=== PATIENT | female | born 1940 | race Caucasian/White ===

== ENCOUNTER 2016-05-08 10:07 | Inpatient (IN) ==
[2016-05-08] MEDS ORDERED: Albuterol 2.5 MG/3 ML NEBULIZER IH ONE (10:32)
[2016-05-08] MEDS ORDERED: CeFAZolin Pre 2,000 MG/100 ML 2,000 MG/100 ML BAG IVPB ONE (10:32)
[2016-05-08] MEDS ORDERED: Lidocaine 1% 20 ML MDV ID ONE (10:34)
[2016-05-08] MEDS ORDERED: Ringers Solution, Lactated 1,000 ML IVC SCH (10:45)
--- NOTE | 2016-05-08 10:56 | Anesthesia Evaluation PreOp ---
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 (spinal stenosis, spondylosis, multiple back issues) Other Medical History: Other (Rheumatoid arthritis) Anesthesia History: Past Anesthesia (hysterectomy, iliofem endarterectomy and l external iliac stent, tubal, R to L fem bypass with grafting, revision fem-fem graft), Problems (hypotension (likely from blood loss due to surgery)) Alcohol Use: none Drug use: none Medications and Allergies Albuterol Sulfate [Proair HFA] 0 puff IH Q4HR 02/14/15 [History] Aspirin 81 mg PO DAILY 02/14/15 [History] Budesonide/Formoterol 160/4.5 [Symbicort] 2 puff IH BIDR 02/14/15 [History] Clopidogrel [Plavix] 75 mg PO DAILY 02/14/15 [History] Polyethylene Glycol 3350 [MiraLAX] 17 gm PO DAILY 10 Days 02/14/15 [Rx] Roflumilast [Daliresp] 500 mcg PO 02/14/15 [History] Tiotropium [Spiriva] 18 mcg IH 0700 02/14/15 [History] Calcium Carbonate/Vitamin D3 [Calcium 500 + Vit D Caplet] 1 each PO DAILY [History] Oxycodone HCl/Acetaminophen [Percocet 7.5-325 mg Tablet] 1 each PO PRN PRN 07/01 [History] Azithromycin [Azithromycin 6-Tab Pack] 250 mg PO DAILY #6 tab 02/07/16 [Rx] Denosumab [Prolia (For Outpatient Infusion)] 60 mg SQ 02/07/16 [History] GuaiFENesin ER [Mucinex] 1,200 mg PO BID #28 tbbp.12hr 02/07/16 [Rx] PredniSONE 40 mg PO DAILY #10 tablet 02/07/16 [Rx] Allergies fentanyl Allergy (Verified 08/01/15 13:06) Nausea Penicillins Allergy (Verified 02/14/15 11:53) Itching - Meds/Allergy Pre-op Review Medications Reviewed: Yes Allergies Reviewed: Yes Beta Blockers on Current Med List: No Anesthesia Results - Labs Laboratory Tests 05/01/16 05/01/16 05/01/16 12:21 12:21 12:21 WBC 11.3 H Hgb 13.0 Hct 38.7 Plt Count 388 PT 10.4 INR 1.0 APTT 28.9 Sodium 136 Potassium 4.4 Chloride 105 Carbon Dioxide 23 BUN 21 H Creatinine 0.85 Glucose 72 - Imaging EKG: report reviewed, image reviewed (SR, poss LAE, septal ME (indeterminante age)) Anesthesia Exam Last Vital Signs Temp 98.2 F 05/08/16 10:31 Pulse 84 05/08/16 10:31 Resp 18 05/08/16 10:48 BP 133/67 05/08/16 10:31 Pulse Ox 99 05/08/16 10:48 Weight: 38 kg NPO (# of Hours): >> 8 hrs - HEENT Pupil (Motor): Pupils equal, EOMI Mallampati: II Teeth: Edentulous Denture Type: Upper: Complete, Lower: Complete Oral Opening: Greater than 3 - TIE CARRIER LOC: Oriented - Cardiac Rhythm: Regular Murmur: None - Pulmonary Breath Sounds: bilateral Clear Respiratory Effort: Symmetrical Anesthesia Assess/Plan ASA Score: 3 Modified [place] Scale for Level of Consciousness: Cooperative, oriented, and tranquil Anesthetic Plan: General Monitoring Plan: Standard Monitors, A-Line Recovery Plan: PACU
[2016-05-08] MEDS ORDERED: Vancomycin 1,000 MG VIAL ONE (12:29)
[2016-05-08] MEDS ORDERED: Heparin 1,000 UNITS/500 mL NS 500 ML ONE ×2 (12:29→13:58)
--- NOTE | 2016-05-08 12:31 | History & Physical Report ---
Date of Encounter: 05/08/16 Time of Encounter: 12:20 24 Hour HP Update - Instructions Instructions: If the History and Physical is less than 30 days old and was completed prior to A.M. admission and or procedure and has NOT been updated on calendar day of procedure please complete this update prior to performing procedure. - Update Patient reports changes in Medical Condition: No Changes in assessment/condition: No Changes in Medication: No Preop tests/diagnostics Reviewed: Yes Surgery Remains Indicated: Yes Consent for Planned Operative Procedure(s) Verified: Yes - Pre-Operative Checklist Preoperative Checklist Indicated: Yes Prophylactic Antibiotic Ordered: Yes Home Medications Include Beta Isabelle: No Beta Isabelle Taken Today (Day of Surgery): No Beta Isabelle Taken Yesterday (Day Prior to Surgery): No Is VTE Prophylaxis Indicated?: Yes
[2016-05-08] MEDS ORDERED: Heparin 1,000 UNITS/500 mL NS 1,000 ML ONE (12:45)
[2016-05-08] MEDS ORDERED: *HR* Remifentanil 2 MG VIAL IVP ONE (13:05)
[2016-05-08] MEDS ORDERED: *HR* Labetalol 100 MG/20 ML MDV IVP PRN (13:34)
[2016-05-08] MEDS ORDERED: Ipratropium Neb 0.5 MG NEBULIZER IH PRN (13:34)
[2016-05-08] MEDS ORDERED: Ondansetron 4 MG/2 ML VIAL IVP PRN ×2 (13:34→17:43)
[2016-05-08] MEDS ORDERED: Albuterol 2.5 MG/3 ML NEBULIZER IH PRN ×2 (13:34→17:43)
[2016-05-08] MEDS ORDERED: Dexamethasone 4 MG/ML VIAL ONE ×2 (13:51→13:58)
[2016-05-08] MEDS ORDERED: Lidocaine -MPF 2% 2 ML VIAL ONE (13:58)
[2016-05-08] MEDS ORDERED: *HR* Succinylcholine 200 MG/10 ML VIAL IVP ONE (13:58)
[2016-05-08] MEDS ORDERED: Water for inj. (sterile) 10 ML IV ONE (13:58)
[2016-05-08] MEDS ORDERED: *HR* Midazolam HCl 2 MG/2 ML VIAL ONE (13:58)
[2016-05-08] MEDS ORDERED: *HR* Propofol 200 MG/20 ML VIAL IVP ONE (13:58)
[2016-05-08] MEDS ORDERED: Ondansetron 4 MG/2 ML VIAL ONE (13:58)
[2016-05-08] MEDS ORDERED: *HR* Phenylephrine 10 MG/ML VIAL ONE (13:58)
[2016-05-08] MEDS ORDERED: *HR* Heparin 5,000 UNIT/ML VIAL ONE (13:58)
[2016-05-08] MEDS ORDERED: *HR* HYDROmorphone 2 MG/ML SYRINGE ONE (15:16)
[2016-05-08] MEDS: *HR* HYDROmorphone (PF) 1 MG/ML SYRINGE IVP PRN ×3 (15:54→16:19)
--- NOTE | 2016-05-08 16:17 | Operative Note ---
Date of procedure: 05/08/16 Pre-op diagnosis: Peripheral vascular disease with disabling claudication Post-op diagnosis: same Procedure: 1. Right common iliac artery 6 x 37mm stent. 2. Revision of Femoral to femoral artery bypass with hemashield patch. 3. Right common and superficial femoral endarterectomy. Complications: None Anesthesia: JMA Surgeon: Artie Monet Estimated blood loss (cc): 100 Specimen: None Condition: stable Disposition: PACU Procedure in Detail: Indications: The patient is a 75 year old female with a history of peripheral vascular disease with disabling claudication. She previosuly underwent a right to left femoral to femoral artery bypass for a left iliac occlusion. She presented to clinic with complaints of bilateral lower extremity disabling claudication. She underwent a CT scan that revealed right common iliac artery high grade stenosis and a stenosis at the origin of her femoral to femoral artery bypass. Revascularization was recomended due to her symptoms. Procedure: The patient was identified in the preoperative area. The risks, benefits, and alternatives of the procedure were discussed. All questions were answered. The patient was taken to the operating room and placed in supine position on the operating room table. After the induction of general endotracheal anesthesia, he was cleaned and draped in normal sterile fashion. An oblique incision was made sharply through her previous right groin scar. Hemostasis was obtained with electrocautery. Through a process of blunt, sharp , and electrocautery dissection, the right femoral vessels and proximal bypass graft anastamosis were dissected circumferentially and surrounded with vessel loops. The patient received 5000 units of heparin intravenously. After waiting adequate time for the heparin to circulate, the right common femoral artery was cannulated with a large bore needle. A [employer] wire was advanced though the needle into the aorta under fluoroscopic view. The needle was exchanged for a 6 panamanian sheath and an omniflush catheter was advanced into the abodminal aorta. Due to the stenosis, a guiding catheter was required to direct the wire through the stenosis and into the aorta. The wire was removed and a retrograde aortoiliac angiogram was performed. This revelead an occluded left common and external iliac artery and a greater than 90% right common iliac artery stenosis. Additional angiography was performed to determine lesion size. A 6 x 37mm stent was advanced over the right wire and was positioned under fluoroscopic guidance. Angiography confirmed appropriate stent placement. The stent was deployed and a completion angiogram revealed resolution of the stenotic segment. The sheath was removed over the wire and the wire and sheath were removed. The puncture site was then repaired with a 6-0 Prolene. A graftotomy was then made longitudinally along the proximal anastamosis. The arteriotomy was extended into the superficial femoral artery. Dense intimal hyparplasia was noted to be obstructin the origin of the graft, the common femoral artery and the proximal superficial femoral artery. Using a dental freer, the intimal hyperplasia was excised. It was then noted that significant plaque was also occluding the common femoral and superficial femoral artery origins. The superficial femoral arteriotomy was exteded distally. Using a dental freer and endarterectomy was performed aalong the common and superficial femoral artery. The plaque was then removed. The lumen was irrigated. Endpoints were inspected and no elevated flaps were noted. The proximal anastamosis of the femoral to femoral bypass graft was revised with a hemashield patch. The patch was cut to fit the graft graft defect and allow for larger inflow. The patch was sutured in place with a running 6-0 Prolene. The corners of the bypass graft were secured in place with a 6-0 prolene and the patch was extended onto the superficial femoral artery defect. Prior to completing the patch, the vessels and graft were flushed through the patch and heparin was infused into the lumen. The patch was completed and flow was restored. Thrombin and gelfoam were used at the proximal anastamosis. Polyphasic signals were noted in the bypass graft and the deep and superficial femoral arteries. The wounds were irrigated with antibiotic-containing saline. Platelet rich and platelet poor plasma were infused into the wounds. Meticulous hemostasis was obtained throughout the wound with electrocautery. Wounds were reapproximated with layers of 2-0 and 3-0 Vicryl. Skin was reapproximated with 3-0 Monocryl. A sterile dressing was applied. The patient was extubated and taken to recovery room in stable condition.
--- NOTE | 2016-05-08 17:24 | Anesthesia Evaluation Post Op ---
Date of Encounter: 05/08/16 Time of Encounter: 17:23 - Vital Signs Vital Signs: Last Vital Signs Temp 97.4 F L 05/08/16 16:57 Pulse 67 05/08/16 17:11 Resp 14 05/08/16 17:11 BP 117/60 05/08/16 17:11 Pulse Ox 99 05/08/16 17:11 - Lungs Lungs: Clear Ascult./Percussion - Airway Airway: Non-obstructed - Cardiovascular Regular Rate - Mental Status Mental Status: Alert & Oriented, Answers Appropriately - Pain Pain Scale: 2 - Nausea Vomiting Nausea Vomiting: Not Present - Hydration Hydration: NPO - Discharge PostOp Status: Transfer Patient to floor
[2016-05-08] MEDS ORDERED: *HR* Promethazine 25 MG/ML VIAL IVP PRN (17:43)
[2016-05-08] MEDS ORDERED: *HR* Labetalol 20 MG/4 ML SYRINGE IVP PRN (17:43)
[2016-05-08] MEDS ORDERED: *HR* OxyCODONE/APAP 5/325 TABLET PO PRN (17:43)
[2016-05-08] MEDS ORDERED: Naloxone 0.4 MG/ML INJ IVP PRN (17:43)
[2016-05-08] MEDS: *HR* Metoprolol 5 MG/5 ML VIAL IVP SCH (18:12)
[2016-05-08] MEDS: Budesonide/Formoterol 160/4.5 MDI IH SCH (20:07)
[2016-05-08] MEDS: ceFAZolin 2,000 MG in D5% in Water 100 ML IVPB SCH (21:30)
[2016-05-09] MEDS: *HR* OxyCODONE/APAP 10/325 TABLET PO PRN ×2 (00:33→09:09)
[2016-05-09] MEDS: *HR* Metoprolol 5 MG/5 ML VIAL IVP SCH ×2 (00:33→04:53)
[2016-05-09] MEDS: ceFAZolin 2,000 MG in D5% in Water 100 ML IVPB SCH (04:54)
[2016-05-09 05:04] LABS: Basophils % 0.1 %; Eosinophils % 0.1 %; Hemoglobin 10.5 g/dL (11.5-15.4); Immature Granulocytes % 0.6 % (0-4); Lymphocytes # 1.9 K/mcL (0.6-4.6); Lymphocytes % 16.3 %; Mean Corpuscular HGB Conc 33.9 g/dL (31.6-35.5); Mean Corpuscular Hemoglobin 31.7 pg (28.0-33.3); Mean Corpuscular Volume 93.7 fL (83.0-100.0); Monocytes % 8.6 %; Neutrophils # 8.7 K/mcL (1.6-8.9); Platelet Count 300 K/mcL (140-400); Red Blood Count 3.31 M/mcL (3.82-4.97); Red Cell Distribution Width 13.4 % (11.5-14.5); Segmented Neutrophils % 74.3 %
[2016-05-09 05:20] LABS: BUN/Creatinine Ratio 19 (6-26); Blood Urea Nitrogen 13 mg/dL (7-20); Calcium 8.4 mg/dL (8.6-10.8); Carbon Dioxide 22 mEq/L (19-29); Chloride 107 mEq/L (98-109); Glucose 106 mg/dL (70-99); Osmolality,Calculated 283 (280-300); Potassium 4.3 mEq/L (3.5-4.5); Sodium 136 mEq/L (136-145); eGFR For African Americans > 60 (> 60); eGFR For Non-African Americans > 60 (> 60)
[2016-05-09] MEDS ORDERED: *HR* Heparin 5,000 UNIT/ML VIAL SQ SCH ×2 (06:00)
--- NOTE | 2016-05-09 07:58 | Discharge Summary ---
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 Her wound is healing and she has no hematoma. Her feet are warm and her pedal signals are present. She will be discharged today. (2) Tobacco abuse Priority: Secondary Status: Chronic Comments: She was counseled regarding smoking cessation. (3) Essential hypertension Priority: Secondary Status: Chronic Comments: She was counseled regarding atherosclerotic risk factor reduction. (4) COPD (chronic obstructive pulmonary disease) Priority: Secondary Status: Chronic Qualifiers: COPD type: emphysema Emphysema type: panlobular Qualified Code(s): J43.1 - Panlobular emphysema - Discharge Medications Home Medications: Albuterol Sulfate [Albuterol Inhaler] 2 puff IH Q4HR PRN 02/14/15 [History] Aspirin 81 mg PO DAILY 02/14/15 [History] Budesonide/Formoterol 160/4.5 [Symbicort] 2 puff IH BIDR 02/14/15 [History] Clopidogrel [Plavix] 75 mg PO DAILY 02/14/15 [History] Roflumilast [Daliresp] 500 mcg PO DAILY 02/14/15 [History] Calcium Carbonate/Vitamin D3 [Calcium 500 + Vit D Caplet] 1 each PO DAILY [History] Denosumab [Prolia (For Outpatient Infusion)] 60 mg SQ Q6M 02/07/16 [History] Albuterol Neb [Proventil Neb] 2.5 mg IH Q4HR PRN 05/08/16 [History] OxyCODONE/APAP 10/325 [Percocet 10/325 MG] 1 each PO Q6H PRN 05/08/16 [History] Oxygen 2 l NS HS 05/08/16 [History] Allergies/Adverse Reactions: Allergies Penicillins Allergy (Verified 05/08/16 11:22) Itching fentanyl Adverse Reaction (Verified 05/08/16 11:22) Nausea Date of admission: 05/08/16 17:36 Primary care physician: David Cardozo Procedure(s) Performed: Right iliac stent, revision of FEM FEM bypass, right femoral endarterectomy. Discharging clinician: Artie Monet Anticipated date of discharge: 05/09/16 - Patient Status Disposition: Home, Self-Care Condition: Good Functional capacity at discharge: independent ambulation Overall status at discharge: patient is back to baseline - Discharge Instructions Instructions: Peripheral Vascular Disorders (DC), Surgical Site Infections (GEN ) Follow Up With: David Cardozo MD [Primary Care Provider] - 05/20/16 4:00 pm Artie Monet MD [Partnered Physician] - 06/23/16 1:00 pm Additional Instructions: May remove bandage and shower 05/10/16. Wash wound gently and pat to dry. Apply dry gauze to right groin wound daily for 7 days. No tub baths or swimming until 05/27/16. Call [phone] with questions or concerns. - Diet and Activity Activity: increase activity as tolerated Diet: advance to your usual diet - Hospital Course Hospital course: Ms. Flores is a 75 year old female with multiple medical comorbidities who reported recurrent disabling claudication. She was found to have significant liac stenosis, femoral artery disease and stenosis of her bypass graft. She underwent revision of her FEM-FEM, a right iliac stent and a right femoral endarterectomy. She was discharged on postoperative day #1 in stable condition without complication. - Time Spent with Patient Total time spent providing and/or coordinating discharge services: Exam Vital Signs, Last 4 Hours Temp Pulse Resp BP Pulse Ox 05/09/16 07:00 73 05/09/16 04:44 98.4 F 59 16 106/60 96 General: Present: Conversant, No Apparent Distress HEENT: Present: Pupils equal Neck: Absent: Tracheal deviation Cardiac: Present: Reg Rate and Rhythm Lungs: Present: Normal Breath Sounds, No Wheeze, Rales, Rhonchi Neuro: Present: Alert and responsive, No focal deficits noted, Motor nerves grossly intact, Sensory nerves grossly intact Abdomen: Present: Soft, Non-tender Vascular: Present: Normal capillary refill, Surgical incisions (incision clean, dry and intact without erythema or drainage). Absent: Cyanosis, Edema Skin: Present: No rashes noted on visualized skin - VTE Documentation of Mechanical Device: Intermittent pneumatic compression device
[2016-05-09 08:13] VITALS: BP 112/55
[2016-05-09] MEDS ORDERED: Aspirin 81 MG TAB.CHEW PO SCH (09:00)
[2016-05-09] MEDS ORDERED: Cholecalciferol (D-3) 1,000 UNIT TABLET PO SCH (09:00)
[2016-05-09] MEDS ORDERED: (Roflumilast [Daliresp] 500 MCG) PO SCH (09:00)
[2016-05-09] MEDS: Budesonide/Formoterol 160/4.5 MDI IH SCH (10:55)
== END 2016-05-09 11:11 | disposition home or self-care (01) | DRG 254 ==
LOC: SAMDAY 10:07 → 2NNU 17:36
PROVIDERS: ADMIT Surgery; ATTEND Surgery

== ENCOUNTER 2018-06-24 06:13 | Inpatient (IN) ==
[2018-06-24] MEDS ORDERED: Vancomycin 500 MG in 0.9 % Sodium Chloride 250 ML IVPB ONE (07:18)
[2018-06-24] MEDS ORDERED: Albuterol 2.5 MG/3 ML NEBULIZER IH ONE (07:18)
[2018-06-24] MEDS ORDERED: CeFAZolin Syr 2,000MG/20 ML 2,000 MG/20 ML SYRINGE IVPB ONE (07:18)
[2018-06-24] MEDS ORDERED: Heparin 1,000 UNITS/500 mL 1,500 ML ONE (07:21)
[2018-06-24] MEDS ORDERED: Bupivacaine-MPF 0.25% 10 ML VIAL ONE (07:21)
[2018-06-24] MEDS ORDERED: Ringers Solution, Lactated 1,000 ML IVC SCH (07:30)
--- NOTE | 2018-06-24 07:38 | History & Physical Report ---
Date of Encounter: 06/24/18 Time of Encounter: 07:33 24 Hour HP Update - Instructions Instructions: If the History and Physical is less than 30 days old and was completed prior to A.M. admission and or procedure and has NOT been updated on calendar day of procedure please complete this update prior to performing procedure. - Update Patient reports changes in Medical Condition: No Changes in examination, assessment, or condition: No Changes in Medication: No Preop tests/diagnostics Reviewed: Yes Surgery Remains Indicated: Yes Consent for Planned Operative Procedure(s) Verified: Yes - Pre-Operative Checklist Preoperative Checklist Indicated: Yes Prophylactic Antibiotic Ordered: Yes (vancomycin due to MRSA risk) Home Medications Include Beta Isabelle: No Beta Isabelle Taken Today (Day of Surgery): No Beta Isabelle Taken Yesterday (Day Prior to Surgery): No Is VTE Prophylaxis Indicated?: Yes
[2018-06-24] MEDS ORDERED: Vancomycin 500 MG in 0.9 % Sodium Chloride Mini Bag 100 ML IVPB ONE ×2 (08:00→23:00)
[2018-06-24] MEDS ORDERED: *HR* PHENYLEPHRINE 1,000 MCG/10 ML SYRINGE IVP ONE ×2 (08:14)
--- NOTE | 2018-06-24 08:14 | Anesthesia Evaluation PreOp ---
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) Other Medical History: Other (rheumatoid arthritis) Anesthesia History: No Prior Anesthetic Complications Alcohol Use: none Drug use: none Medications and Allergies Albuterol Neb [Proventil Neb] 2.5 mg IH Q4HR PRN 06/24/18 [History] Albuterol Sulfate [Ventolin Hfa] 2 puff IH Q4H PRN 06/24/18 [History] Aspirin [Adult Aspirin] 81 mg PO DAILY 06/24/18 [History] Budesonide/Formoterol 160/4.5 [Symbicort 160/4.5] 2 puff IH DAILY 06/24/18 [History] Clopidogrel [Plavix] 75 mg PO DAILY 06/24/18 [History] Denosumab [Prolia (For Outpatient Infusion)] 60 mg SQ [id number] 06/24/18 [History] Fluticasone Propionate Nasal [Flonase] 1 spr NS DAILY PRN 06/24/18 [History] Loratadine [Claritin] 10 mg PO DAILY PRN 06/24/18 [History] [place]-3/Dha/Epa/Fish Oil [Fish Oil 1,000 mg Softgel] 1 cap PO DAILY 06/24/18 [History] OxyCODONE/APAP 10/325 [Percocet 10/325 MG] 1 tab PO Q6HR PRN 06/24/18 [History] Allergy/AdvReac Type Severity Reaction Status Date / Time Penicillins Allergy Rash Verified 06/24/18 07:29 fentanyl AdvReac Nausea Verified 06/24/18 07:29 - Meds/Allergy Pre-op Review Medications Reviewed: Yes Allergies Reviewed: Yes Beta Blockers on Current Med List: No Anesthesia Results - Labs Laboratory Tests 06/09/18 06/09/18 06/09/18 08:41 08:41 08:41 WBC 15.7 H Hgb 14.3 Hct 42.7 Plt Count 300 PT 10.2 INR 0.9 APTT 30.5 Sodium 138 Potassium 4.1 Chloride 103 Carbon Dioxide 28 BUN 24 H Creatinine 0.81 Est GFR ( Amer) > 60 Est GFR (Non-Af Amer) > 60 BUN/Creatinine Ratio 30 H Glucose 122 H Calculated Osmolality 291 Calcium 9.8 - Imaging EKG: report reviewed, image reviewed (SR) Anesthesia Exam Last Vital Signs Temp 98.1 F 06/24/18 06:45 Pulse 70 06/24/18 06:45 Resp 18 06/24/18 08:05 BP 127/61 06/24/18 08:05 Pulse Ox 98 06/24/18 08:05 Weight: 36 kg NPO (# of Hours): > 8 hrs - HEENT Pupil (Motor): Pupils equal, EOMI Mallampati: III Teeth: Edentulous Denture Type: Upper: Complete Oral Opening: Greater than 3 - 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
[2018-06-24] MEDS ORDERED: *HR* Propofol 200 MG/20 ML VIAL IVP ONE (08:21)
[2018-06-24] MEDS ORDERED: Ondansetron 4 MG/2 ML VIAL ONE (08:22)
[2018-06-24] MEDS ORDERED: Lidocaine -MPF 2% 2 ML VIAL ONE (08:22)
[2018-06-24] MEDS ORDERED: Dexamethasone 4 MG/ML VIAL ONE (08:22)
[2018-06-24] MEDS ORDERED: *HR* OxyCODONE/APAP 10/325 TABLET PO ONE (08:31)
[2018-06-24] MEDS ORDERED: *HR* OxyCODONE Immed Rel 5 MG TABLET PO PRN ×2 (08:50→14:29)
[2018-06-24] MEDS ORDERED: Vancomycin 1,000 MG, Sodium Chloride IRRigation 1,000 ML IR ONE (08:55)
[2018-06-24] MEDS ORDERED: Isovue-300 50 ML VIAL ONE (09:03)
[2018-06-24] MEDS ORDERED: Isovue-300 150 ML INFUS..BTL ONE (09:05)
[2018-06-24] MEDS ORDERED: *HR* HYDROMORPHONE 2 MG/ML VIAL ONE (10:18)
[2018-06-24] MEDS ORDERED: *HR* Heparin 5,000 UNIT/ML VIAL ONE (10:42)
[2018-06-24] MEDS ORDERED: *HR* Phenylephrine 10 MG/ML VIAL ONE (10:43)
--- NOTE | 2018-06-24 13:01 | Operative Note ---
Date of procedure: 06/24/18 Pre-op diagnosis: Peripheral vascular disease with disabling claudication Post-op diagnosis: same Procedure: 1. Abdominal angiogram with 6 x 27 mm right common and external iliac artery stent placement. 2. Right iliofemoral artery and deep femoral artery endarterectomy. 3. Revision of proximal anastomosis of right common femoral to left common femoral artery bypass graft. Complications: None Anesthesia: GETA, local Surgeon: Artie Monet Was there an print shop assistant present: No Estimated blood loss (cc): 50 Specimen: None Condition: stable Disposition: PACU Procedure in Detail: Indications: The patient is a 78-year-old female with a history of peripheral vascular disease with disabling claudication, COPD, tobacco abuse and hypertension. The patient presents underwent femoral-femoral artery bypass grafting. The patient developed progressive disabling claudication in the bilateral lower extremities. Revascularization was recommended to alleviate her symptoms. Procedure: The patient was identified in the preoperative area. The risks, benefits alternatives were discussed and all questions were answered. The patient was then taken to the operating room and placed in supine position on the operative table. After induction of general endotracheal anesthesia she was cleaned and draped in normal sterile fashion. Oblique incision was then made through her right groin scar sharply. Hemostasis was obtained through electrocautery. Through a process of blunt, sharp and electrocautery dissection, the distal right external iliac artery, deep femoral artery and superficial femoral artery as well as the right limb of the femorofemoral bypass graft were dissected circumferentially and surrounded with vessel loops. The patient received 5000 units of intravenous heparin. After waiting adequate time for the heparin to circulate tension was applied to the Vesseloops. Using a micropuncture needle the right common femoral artery was cannulated in the microwire was advanced into the right iliac artery. The needle was exchanged for a micro-sheath. The introducer and wire removed and exchanged for a Stylendason wire. The wire was advanced into the aorta. The micro-sheath was exchanged for a 6-Omani sheath. Aortoiliac angiography was then performed which revealed a high-grade stenosis within the distal common and proximal external iliac artery. A 6 x 27 mm stent was advanced over the wire and deployed across the stenotic segment. A completion angiogram revealed resolution of the stenotic segment. The wire and sheath were removed. The puncture site was extended with Anderson scissors. Intimal hyperplasia as well as dense atherosclerotic plaque was encountered. Using a dental freer, an endarterectomy was performed. The endarterectomy was extended proximally into the external iliac artery distal to the stent, across the common femoral artery and into the deep femoral artery on the right. The plaque was excised. Upon release of the proximal vessel loop and strong pulsatile flow was now noted. The lumen was flushed with heparinized saline and then reoccluded. A Hemashield patch was cut to fit the arteriotomy and to revise the proximal end of the femoral to femoral artery bypass graft. The patch was cut to fit the arterial and graft defect and sutured in place with running 6-0 Prolene. Prior to completing the closure each vessel was flushed individually, the graft was f lushed individually and then heparinized saline was infused into the lumen the patch was completed and flow was restored. Strong pulsatile flow was noted across the graft. Polyphasic signals were noted in the deep and superficial femoral arteries as well as across the graft. The wound was irrigated with antibiotic containing saline. Thrombin and Gelfoam were used to aid in hemostasis. Meticulous hemostasis was obtained throughout the wound with electrocautery. Platelet rich and platelet poor plasma were infused into the wound. The wound was then reapproximated with layers of 2-0 Vicryl and 3-0 Vicryl suture. Skin was then reapproximated with a running 3-0 Monocryl suture. A sterile dressing was applied and the patient was taken to the recovery room in stable condition.
[2018-06-24] MEDS ORDERED: Gabapentin 300 MG CAPSULE PO ONE (13:35)
--- NOTE | 2018-06-24 13:42 | Anesthesia Evaluation Post Op ---
Date of Encounter: 06/24/18 Time of Encounter: 13:41 - Vital Signs Vital Signs: Vital Signs/O2 Sat/Glucose, Most Recent Temp Pulse Resp BP Pulse Ox 98.3 F 72 16 130/65 96 06/24/18 13:15 06/24/18 13:25 06/24/18 13:25 06/24/18 13:25 06/24/18 13:25 - Lungs Lungs: Clear Ascult./Percussion - Airway Airway: Non-obstructed - Cardiovascular Regular Rate - Mental Status Mental Status: Alert & Oriented, Answers Appropriately - Pain Pain Scale: 2 - Nausea Vomiting Nausea Vomiting: Not Present - Hydration Hydration: NPO - Discharge PostOp Status: Transfer Patient to floor
[2018-06-24] MEDS ORDERED: *HR* Labetalol 20 MG/4 ML SYRINGE IVP PRN (14:29)
[2018-06-24] MEDS ORDERED: 0.9 % Sodium Chloride 1,000 ML IVC SCH (14:29)
[2018-06-24] MEDS ORDERED: Fluticasone Propionate Nasal 50 MCG/SPRAY BOTTLE NS PRN (14:29)
[2018-06-24] MEDS ORDERED: Denosumab 60 MG/ML SYRINGE SQ SCH (14:29)
[2018-06-24] MEDS ORDERED: Naloxone 0.4 MG/ML INJ IVP PRN (14:29)
[2018-06-24] MEDS ORDERED: Ondansetron 4 MG/2 ML VIAL IVP PRN (14:29)
[2018-06-24] MEDS ORDERED: Acetaminophen 325 MG TABLET PO PRN (14:29)
[2018-06-24] MEDS ORDERED: Albuterol 2.5 MG/3 ML NEBULIZER IH PRN (14:29)
[2018-06-24] MEDS ORDERED: Loratadine 10 MG TABLET PO PRN (14:29)
[2018-06-24] MEDS: *HR* Metoprolol 5 MG/5 ML VIAL IVP SCH (17:02)
[2018-06-24] MEDS ORDERED: Vancomycin 0 MG in D5% in Water 250 ML IVPB ONE (23:00)
[2018-06-24] MEDS: *HR* HYDROcodone/Acet 5/325 mg TABLET PO PRN (23:17)
[2018-06-25] MEDS: *HR* Metoprolol 5 MG/5 ML VIAL IVP SCH ×2 (03:19→05:47)
[2018-06-25] MEDS: *HR* HYDROcodone/Acet 5/325 mg TABLET PO PRN (05:41)
[2018-06-25] MEDS ORDERED: *HR* Heparin 5,000 UNIT/ML VIAL SQ SCH ×2 (06:00)
[2018-06-25 06:14] LABS: Basophils # 0.1 K/mcL (0.0-0.2); Basophils % 0.5 %; Eosinophils # 0.1 K/mcL (0.0-0.6); Eosinophils % 0.4 %; Hematocrit 33.5 % (35.3-44.9); Hemoglobin 11.1 g/dL (11.5-15.4); Immature Granulocytes % 0.3 % (0-4); Lymphocytes # 2.3 K/mcL (0.6-4.6); Mean Corpuscular HGB Conc 33.1 g/dL (31.6-35.5); Mean Corpuscular Hemoglobin 32.8 pg (28.0-33.3); Mean Corpuscular Volume 99.1 fL (83.0-100.0); Monocytes # 1.4 K/mcL (0.0-1.3); Monocytes % 10.4 %; Neutrophils # 9.2 K/mcL (1.6-8.9); Platelet Count 389 K/mcL (140-400); Red Blood Count 3.38 M/mcL (3.82-4.97); Red Cell Distribution Width 13.8 % (11.5-14.5); Segmented Neutrophils % 70.4 %
--- NOTE | 2018-06-25 06:24 | Discharge Summary ---
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 Her foot is warm. Her pedal signals are polyphasic. Compartments are soft. Her pain is well-controlled. She will be discharged today. (2) Tobacco abuse Priority: Secondary Status: Chronic Comments: She was counseled regarding smoking cessation. (3) Essential hypertension Priority: Secondary Status: Chronic Comments: She was counseled regarding atherosclerotic risk factor reduction. (4) COPD (chronic obstructive pulmonary disease) Priority: Secondary Status: Chronic Qualifiers: COPD type: emphysema Emphysema type: panlobular Qualified Code(s): J43.1 - Panlobular emphysema (5) Acute blood loss anemia Priority: Secondary Status: Acute Comments: The patient has acute expected postoperative blood loss anemia. She is hemodynamically stable without evidence of ongoing blood loss. - Hospital Course Hospital course: Ms. Flores is a 78 year old female with a history of hypertension, tobacco abuse, COPD and peripheral vascular disease. She reported rest pain and was fou nd have significant peripheral vascular disease. She was admitted on 06/24/2018 in the [facility]. She underwent a right iliac stent, right femoral endarterectomy and a revision of the proximal anastomosis of her femoral to femoral artery bypass graft. She tolerated the procedure well. On postoperative day #1 she reported that her pain was well-controlled. She is able to ambulate without difficulty. She was discharged in stable condition on postoperative day #1 without complication. Time spent discussing smoking cessation with patient: 3 to 10 minutes - Time Spent with Patient Total time spent providing and/or coordinating discharge services: - Discharge Medications Prescriptions: Continue RX: Albuterol Sulfate [Ventolin Hfa] 2 puff IH Q4H PRN PRN Reason: Shortness Of Breath RX: Aspirin [Adult Aspirin] 81 mg PO DAILY RX: Budesonide/Formoterol 160/4.5 [Symbicort 160/4.5] 2 puff IH DAILY RX: Clopidogrel [Plavix] 75 mg PO DAILY RX: Fluticasone Propionate Nasal [Flonase] 1 spr NS DAILY PRN PRN Reason: Allergy Symptoms RX: Loratadine [Claritin] 10 mg PO DAILY PRN PRN Reason: Allergy Symptoms RX: OxyCODONE/APAP 10/325 [Percocet 10/325 MG] 1 tab PO Q6HR PRN PRN Reason: Pain RX: Albuterol Neb [Proventil Neb] 2.5 mg IH Q4HR PRN PRN Reason: Shortness Of Breath RX: Denosumab [Prolia (For Outpatient Infusion)] 60 mg SQ [id number] RX: [place]-3/Dha/Epa/Fish Oil [Fish Oil 1,000 mg Softgel] 1 cap PO DAILY Home Medications: RX: Albuterol Neb [Proventil Neb] 2.5 mg IH Q4HR PRN 06/24/18 [History] RX: Albuterol Sulfate [Ventolin Hfa] 2 puff IH Q4H PRN 06/24/18 [History] RX: Aspirin [Adult Aspirin] 81 mg PO DAILY 06/24/18 [History] RX: Budesonide/Formoterol 160/4.5 [Symbicort 160/4.5] 2 puff IH DAILY 06/24/18 [History] RX: Clopidogrel [Plavix] 75 mg PO DAILY 06/24/18 [History] RX: Denosumab [Prolia (For Outpatient Infusion)] 60 mg SQ [id number] 06/24/18 [History] RX: Fluticasone Propionate Nasal [Flonase] 1 spr NS DAILY PRN 06/24/18 [History] RX: Loratadine [Claritin] 10 mg PO DAILY PRN 06/24/18 [History] RX: [place]-3/Dha/Epa/Fish Oil [Fish Oil 1,000 mg Softgel] 1 cap PO DAILY 06/24/18 [History] RX: OxyCODONE/APAP 10/325 [Percocet 10/325 MG] 1 tab PO Q6HR PRN 06/24/18 [History] Allergies/Adverse Reactions: Allergy/AdvReac Type Severity Reaction Status Date / Time Penicillins Allergy Rash Verified 06/24/18 07:29 fentanyl AdvReac Nausea Verified 06/24/18 07:29 Date of admission: 06/24/18 14:30 Primary care physician: Abby Shankar APN Procedure(s) Performed: Right iliac stent, a femoral endarterectomy, revision of her femorofemoral bypass. Discharging clinician: Artie Monet Anticipated date of discharge: 06/25/18 Exam Vital Signs, Last 4 Hours Temp Pulse Resp BP Pulse Ox 06/25/18 05:48 98 06/25/18 03:30 97.9 F 64 16 94/53 98 General: Present: Conversant, No Apparent Distress Neuro: Present: Alert and responsive, Motor nerves grossly intact, Sensory nerves grossly intact Vascular: Present: Pulse, normal, Surgical incisions (incision clean, dry and intact without erythema, drainage or hematoma). Absent: Cyanosis, Edema Skin: Present: No rashes noted on visualized skin - Patient Status Disposition: Home, Self-Care Condition: Good Functional capacity at discharge: independent ambulation Overall status at discharge: patient is back to baseline - Discharge Instructions Instructions: Peripheral Vascular Disorders (DC), Chronic Obstructive Pulmonary Disease (DC), Chronic Hypertension (DC) Follow Up With: Abby Shankar APN [Primary Care Provider] - 07/02/18 10:00 am (Spoke with Mary from the office and she said the system was down and made this appointment, said she would put it in when the system came back up.) Artie Monet MD [Partnered Physician] - 07/14/18 3:15 pm Additional Instructions: May remove bandage and shower on 06/26/2018. Wash wound gently and pat to dry. No tub baths or swimming until 07/20/2018. Apply dry gauze to right groin wound daily for [address] Monet at [phone] with questions or concerns. - Diet and Activity Activity: increase activity as tolerated Diet: advance to your usual diet
[2018-06-25 06:33] LABS: BUN/Creatinine Ratio 21 (6-26); Blood Urea Nitrogen 14 mg/dL (8-23); Calcium 8.8 mg/dL (8.6-10.3); Carbon Dioxide 27 mEq/L (23-29); Chloride 107 mEq/L (98-107); Glucose 85 mg/dL (70-105); Osmolality,Calculated 288 (280-300); Potassium 4.4 mEq/L (3.5-5.1); Sodium 139 mEq/L (136-145); eGFR For Non-African Americans > 60 (> 60)
[2018-06-25 07:45] VITALS: BP 100/52
[2018-06-25] MEDS ORDERED: Aspirin Enteric Coated 81 MG Tablet PO SCH (09:00)
[2018-06-25] MEDS ORDERED: [Fish Oil 1,000 Mg Softgel] PO SCH (09:00)
[2018-06-25] MEDS ORDERED: Budesonide/Formoterol 160/4.5 1 PUFF INH IH SCH (09:00)
== END 2018-06-25 11:25 | disposition home or self-care (01) | DRG 271 ==
LOC: SAMDAY 06:13 → 2NNU 14:30
PROVIDERS: ADMIT Surgery; ATTEND Surgery